=== PATIENT | male | born 1960 | race Caucasian/White ===

== ENCOUNTER 2017-01-31 05:06 | Emergency (ER) | payer BC, OTHER ==
[~2017-01-31] VITALS: Ht 175.3 cm; Wt 82.0 kg
[2017-01-31 05:08] VITALS: Ht 175.3 cm; Wt 82.0 kg
[2017-01-31] MEDS ORDERED: ONDANSETRON 4 MG INJ IV ONE (05:19)
[2017-01-31] MEDS ORDERED: KETOROLAC 30 MG INJ IV ONE (05:19)
[2017-01-31] MEDS ORDERED: morphine 4 MG/ML VIAL IV ONE (05:20)
[2017-01-31] MEDS ORDERED: SOD CHLORIDE 0.9% 1,000 ML IV ONE (05:30)
[2017-01-31] MEDS ORDERED: HYDROmorphONE 1 MG/ML SYG IV ONE (05:33)
[2017-01-31 05:44] LABS: ADD SCAN DIFF NO; BASOPHIL # 0.1 10^3/ul (0.0-0.1); BASOPHILS % 0.8 % (0.0-2.0); HEMATOCRIT 46.1 % (42.0-52.0); HEMOGLOBIN 15.3 g/dl (14.0-18.0); LYMPHOCYTES # 2.2 10^3/ul (0.8-2.9); LYMPHOCYTES % 35.2 % (15.0-51.0); MEAN CORPUSCULAR HEMOGLOBIN 30.3 pg (29.0-33.0); MEAN CORPUSCULAR HGB CONC 33.2 g/dl (32.0-37.0); MEAN CORPUSCULAR VOLUME 91.3 fl (82.0-101.0); MEAN PLATELET VOLUME 10.3 fl (7.4-10.4); MONOCYTE # 0.5 10^3/ul (0.3-0.9); MONOCYTES % 8.5 % (0.0-11.0); NEUTROPHIL # 3.4 10^3/ul (1.6-7.5); NEUTROPHILS % 55.3 % (39.0-77.0); PLATELET COUNT 227 10^3/UL (140-415); RED BLOOD COUNT 5.05 10^6/ul (4.70-6.10); RED CELL DISTRIBUTION WIDTH 12.7 % (11.5-14.5); WHITE BLOOD COUNT 6.1 10^3/ul (4.8-10.8)
[2017-01-31 05:57] LABS: ALBUMIN 4.4 g/dl (3.3-4.9); ALBUMIN/GLOBULIN RATIO 1.41; BILIRUBIN,INDIRECT 0.3 mg/dl (0-1.1); BILIRUBIN,TOTAL 0.3 mg/dl (0.2-1.3); CREATININE 1.03 mg/dl (0.61-1.24); TOTAL PROTEIN 7.5 g/dl (6.1-8.1)
[2017-01-31] MEDS ORDERED: ONDANSETRON 4 MG INJ IV STA ×3 (06:09→09:33)
[2017-01-31] MEDS ORDERED: HYDROmorphONE 1 MG/ML SYG IV STA ×3 (06:09→09:33)
[2017-01-31] MEDS ORDERED: SOD CHLORIDE 0.9% 1,000 ML IV STA ×4 (06:24→14:59)
--- NOTE | 2017-01-31 06:27 | RADRPT ---
PROCEDURE: CT Abdomen and Pelvis without contrast. CLINICAL INDICATION: Abdominal pain. TECHNIQUE: Routine axial tomographic images of the abdomen and pelvis were obtained from the domes of the diaphragm to the symphysis pubis. The patient was scanned withoutoral or intravenous contra st. Coronal and sagittal reformatted images were obtained from the axial source images. Images were reviewed on a high-resolution PACS workstation. One or more of the following dose reduction techniques were used: Automated exposure control, Adjust ment of the mA and/or kV according to patient size, and/or Use of iterative reconstruction technique . The total exam CTDI equals 13.90 mGy and the total exam DLP equals 880.81 mGy-cm. COMPARISON: None. FINDINGS: The visualized portions of the lung bases are clear. Evaluation of the intra-abdominal solid orga ns is somewhat limited on this noncontrast examination. The liver appears normal in size. There is a 7 mm cyst within the inferior right hepatic lobe. There is no intra or extrahepatic biliary dilat ation. The gallbladder is unremarkable by CT criteria. The spleen and pancreas are unremarkable. T here is a 1.9 cm right adrenal gland nodule measuring -2 HU. There is a 1.3 cm left adrenal gland n odule measuring -8 HU. The kidneys are symmetric in size. There is mild left hydronephrosis and proximal hydroureter. Ther e is a 4 mm calculus within the left mid ureter, 8 cm distal to the left UPJ at the level of the sup erior endplate of L4, measuring 600 HU. The urinary bladder is grossly unremarkable. The bowel demonstrates normal course and caliber. There is no evidence of bowel obstruction. Divert icula are seen throughout the colon. The appendix is normal in appearance. No intraperitoneal free fluid, free air or abscess is identified. The pelvic organs are grossly unremarkable. No retroperi toneal, mesenteric, or inguinal lymphadenopathy is identified. The aorta is normal in caliber. The osseous structures are unremarkable. No significant subcutaneous soft tissue abnormalities are seen. IMPRESSION: 1. 4 mm obstructing calculus within the left mid ureter, 8 cm distal to the left UPJ at the level o f the superior endplate of L4, measuring 6 and Hounsfield units. There is mild left hydronephrosis and proximal hydroureter. No additional renal, ureteral or bladder calculi are seen. 2. Bilateral adrenal adenomas measuring 1.9 cm on the right and 1.3 cm on the left. 3. Colonic diverticulosis. RPTAT: HH .Stormy Mchugh MD, MD Date Time Electronically viewed and signed by .Stormy Mchugh MD, on 01/31/2017 06:26 .G/
[2017-01-31] MEDS ORDERED: TAMSULOSIN (SR) 0.4 MG CAP PO ONE (06:30)
--- NOTE | 2017-01-31 07:36 | ERD ---
ER Documentation Chief Complaint Date/Time DATE: 01/31/17 TIME: 07:27 Chief Complaint left flank pain since 2 hours ago HPI This is a 56-year-old male that presents to the emergency department complaining of a sudden onset of severe left flank pain that awoke him at 330 this morning, 2 hours prior to arrival. The patient has a history of kidney stones which he spontaneously passed in the year 1999. He indicates this pain is similar nature and is 10 out of 10 in intensity. He attempted to drink a significant amount of water prior to arrival but this did not improve his pain. He denied any gross hematuria and no frequency or urgency. There is no alleviating or exacerbating factors to the pain. He denies any recent or remote blunt abdominal trauma. ROS All systems reviewed and are negative except as per history of present illness. Allergies Allergies: Coded Allergies: No Known Allergy (Unverified , 01/31/17) PMhx/Soc History of Surgery: Yes (TONSILLECTOMY, LARYNX MASS REMOVED) Hx Alcohol Use: No Hx Substance Use: No Hx Tobacco Use: No Smoking Status: Never smoker Physical Exam Vitals Vital Signs Date Time Temp Pulse Resp B/P Pulse Ox O2 Delivery O2 Flow Rate FiO2 01/31/17 06:18 63 18 130/86 99 Room Air 01/31/17 05:08 97.8 69 20 157/85 100 Physical Exam Constitutional:Well-developed. Well-nourished. Patient appeared to be in a significant amount of discomfort secondary to pain HEENT:Normocephalic. Atraumatic.Pupils were equal round reactive to light. Moist mucous membranes.No tonsillar exudates. Neck: No nuchal rigidity. No lymphadenopathy. No posterior cervical spine tenderness or step-offs. Respiratory: Not using accessory muscles of respiration.Lungs were clear to auscultation bilaterally. No rhonchi. No rales. No wheezing. Cardiovascular: Regular rate regular rhythm.No murmurs. No rubs were appreciated.S1, S2 normal. Distal pulses are palpable 2+ bilaterally. GI: Abdomen was soft. Left CVA tenderness with no palpable bladder. Non Distended. No pulsatile abdominal masses or bruits. No rebound. No guarding. Bowel sounds were present and normal. Muscle skeletal: Full range of motion of both the upper and lower extremities bilaterally.Normal muscle tone.No assymetrical calf tenderness or swelling. Skin: No petechia, no purpura. No lesions on the palms or the soles of the feet. No maculopapular rash. NEURO: Patient was alert, awake, orientated x3.No facial droop. Gait observed and normal with no ataxia.Speech had regular rate and rhythm. No focal neurological deficits. Result Diagram: 01/31/17 0530 01/31/17 0530 Results 24 hrs Laboratory Tests Test 01/31/17 05:30 White Blood Count 6.110^3/ul Red Blood Count 5.0510^6/ul Hemoglobin 15.3g/dl Hematocrit 46.1% Mean Corpuscular Volume 91.3fl Mean Corpuscular Hemoglobin 30.3pg Mean Corpuscular Hemoglobin Concent 33.2g/dl Red Cell Distribution Width 12.7% Platelet Count 53823^3/UL Mean Platelet Volume 10.3fl Neutrophils % 55.3% Lymphocytes % 35.2% Monocytes % 8.5% Eosinophils % 0.0% Basophils % 0.8% Nucleated Red Blood Cells % 0.0/100WBC Neutrophils # 3.410^3/ul Lymphocytes # 2.210^3/ul Monocytes # 0.510^3/ul Eosinophils # 0.010^3/ul Basophils # 0.110^3/ul Nucleated Red Blood Cells # 0.010^3/ul Sodium Level 141mmol/L Potassium Level 4.0mmol/L Chloride Level 108mmol/L Carbon Dioxide Level 25mmol/L Anion Gap 12 Blood Urea Nitrogen 22mg/dl Creatinine 1.03mg/dl Glucose Level 144mg/dl Calcium Level 9.0mg/dl Total Bilirubin 0.3mg/dl Direct Bilirubin 0.00mg/dl Indirect Bilirubin 0.3mg/dl Aspartate Amino Transf (AST/SGOT) 35IU/L Alanine Aminotransferase (ALT/SGPT) 45IU/L Alkaline Phosphatase 61IU/L Total Protein 7.5g/dl Albumin 4.4g/dl Globulin 3.10g/dl Albumin/Globulin Ratio 1.41 Current Medications Medications (Trade) Dose Ordered Sig/Keven Route PRN Reason Start Time Stop Time Status Last Admin Dose Admin Sodium Chloride (NS) 1,000 ml @ 1,000 mls/hr Q1H ONCE IV 01/31/17 05:30 01/31/17 06:29 DC 01/31/17 05:28 Ketorolac Tromethamine (Toradol) 30 mg ONCE ONCE IV 01/31/17 05:19 01/31/17 05:20 DC 01/31/17 05:29 Ondansetron HCl (Zofran Inj) 4 mg ONCE ONCE IV 01/31/17 05:19 01/31/17 05:20 DC 01/31/17 05:30 Morphine Sulfate (morphine) 4 mg ONCE ONCE IV 01/31/17 05:20 01/31/17 05:21 DC 01/31/17 05:30 Hydromorphone HCl (Dilaudid) 1 mg ONCE ONCE IV 01/31/17 05:33 01/31/17 05:34 DC 01/31/17 05:45 Hydromorphone HCl (Dilaudid) 1 mg ONCE STAT IV 01/31/17 06:09 01/31/17 06:11 DC 01/31/17 06:17 Ondansetron HCl (Zofran Inj) 4 mg ONCE STAT IV 01/31/17 06:09 01/31/17 06:11 DC 01/31/17 06:17 Tamsulosin HCl 0.4 mg 0.4 mg ONCE ONCE PO 01/31/17 06:30 01/31/17 06:31 DC 01/31/17 07:06 Sodium Chloride (NS) 1,000 ml @ 1,000 mls/hr Q1H STAT IV 01/31/17 06:24 01/31/17 07:23 DC 01/31/17 06:44 Hydromorphone HCl (Dilaudid) 1 mg ONCE STAT IV 01/31/17 07:08 01/31/17 07:09 DC 01/31/17 07:17 Ondansetron HCl (Zofran Inj) 4 mg ONCE STAT IV 01/31/17 07:08 01/31/17 07:09 DC 01/31/17 07:15 Procedures/MDM The patient presented to the emergency department with left flank pain. My differential diagnosis included but was not limited to spinal origins of the pain such as fracture, osteomyelitis, epidural abscess, neoplasm, spondylolishtesis, discogenic, cauda equina syndrome or musculoligamentous. Nonspinal causes such as AAA, upper UTI, renal colic, aortic dissection, abdominal neoplasm were also considered as an etiology into their pain. The patient and IV access established by nursing staff and was placed in a director of cardiac rehabilitation. He received IV Toradol morphine Zofran and a liter bolus of 0.9 normal saline. Obtained a CT scan without contrast of the patient's abdomen which showed a 4 mm obstructing calculus within the left mid ureter with mild left hydronephrosis and proximal hydroureter. There was no additional renal urethral or bladder calculi that were seen. The patient has bilateral adrenal adenomas which she states were present from a CT scan that was performed several years ago and therefore this is not a new finding for the patient. Observation Note: Time: 4 hours Family Hx: No Hypertension Evaluation: Multiple exams showed improving symptoms. The patient had no evidence of urosepsis, acute kidney injury, nausea or anuria. And indicated to the patient that most urethral stones less than 5 mm will pass spontaneously. In order to facilitate stone passage of his urethral stone the patient was given anti-spasmodic agents which included an alpha keira tamsulosin which he will be prescribed for the next 4 weeks. He was also sent home with anti- inflammatories and Tyler to take if needed. He was given follow-up with the urologist. Departure Diagnosis: Primary Impression: Nephrolithiasis Condition: Serious ELEAZARSENDY TABARES Jan 31, 2017 07:36
[2017-01-31] MEDS ORDERED: ASPI81TA3 PO (08:42)
[2017-01-31] MEDS ORDERED: CHOL400T10 PO (08:43)
[2017-01-31] MEDS ORDERED: ASCO500C7 PO (08:43)
[2017-01-31 10:30] VITALS: BP 130/78
[2017-01-31] MEDS ORDERED: KETOROLAC 30 MG INJ IV STA (10:52)
[2017-01-31] MEDS ORDERED: IBUP800T25 PO (10:57)
[2017-01-31] MEDS ORDERED: TAMS-14 PO (10:57)
[2017-01-31] MEDS ORDERED: HYDR-906 PO (10:57)
[2017-01-31 13:30] VITALS: PULSE 63; TEMP 97.8
[2017-01-31 17:11] VITALS: RESP 20
== END 2017-01-31 17:12 | disposition home or self-care (01) ==
LOC: E/R 05:06
DX: N20.0 Calculus of kidney (principal)
CPT/HCPCS: 74176; 80053; 85025; 96374; 96375; 96376; 99285; J1170; J1885; J2270; J2405; J7030